=== PATIENT | female | born 1950 | race Caucasian/White ===

== ENCOUNTER 2016-09-20 10:13 | Outpatient (CLI) | payer OTHER, MEDICARE ==
[2016-09-20 11:00] LABS: Hemoglobin A1c 7.1 % (4.0-6.0)
[2016-09-20 11:08] LABS: ALT (SGPT) 23 U/L (0-55); AST (SGOT) 19 U/L (5-34); Alkaline Phosphatase 88 U/L (40-150); Anion Gap 15 mmol/L (10-20); BUN (Urea Nitrogen) 14 mg/dL (9.8-20.1); Bilirubin, Total 0.4 mg/dL (0.2-1.2); Calc. Creatinine Clearance 0 mL/min (70-130); Calcium 9.3 mg/dL (7.8-10.44); Carbon Dioxide 27 mmol/L (23-31); Chloride 106 mmol/L (98-107); Estimated GFR-MDRD 61; Globulin 2.6 g/dL (2.4-3.5); LDL Cholesterol, Calculated 103 mg/dL; Protein, Total 6.8 g/dL (5.8-8.1)
== END 2016-09-20 10:14 | disposition home or self-care (01) ==
LOC: NAV LAB 10:13
PROVIDERS: ATTEND Family Medicine
DX: E78.5 Hyperlipidemia, unspecified (principal); E11.9 Type 2 diabetes mellitus without complications
CPT/HCPCS: 80053; 80061; 83036

== ENCOUNTER 2017-02-12 09:01 | Outpatient (CLI) | payer OTHER, MEDICARE ==
[2017-02-12 09:55] LABS: ALT (SGPT) 16 U/L (8-55); AST (SGOT) 16 U/L (5-34); Albumin 4.3 g/dL (3.4-4.8); Alkaline Phosphatase 70 U/L (40-150); Anion Gap 15 mmol/L (10-20); BUN (Urea Nitrogen) 21 mg/dL (9.8-20.1); Bilirubin, Total 0.4 mg/dL (0.2-1.2); Calc. Creatinine Clearance 0 mL/min (70-130); Calcium 9.5 mg/dL (7.8-10.44); Carbon Dioxide 28 mmol/L (23-31); Cardiac Risk 3.8 (Less than 4.5); Chloride 105 mmol/L (98-107); Cholesterol 180 mg/dl (< 200 Desired); Estimated GFR-MDRD 52; Globulin 2.9 g/dL (2.4-3.5); Glucose 136 mg/dL (80-115); HDL Cholesterol 48 mg/dL (>60 Neg Risk); LDL Cholesterol, Calculated 91 mg/dL; Potassium 4.4 mmol/L (3.5-5.1); Protein, Total 7.2 g/dL (6.0-8.3); Sodium 144 mmol/L (136-145); Triglycerides 207 mg/dL (Less than 150)
[2017-02-12 18:51] LABS: Microalbumin Urine Less than 1.0 mg/dL (0.5-50.0); Microalbumin/Creat Ratio 7.6 mg/g (Less than 30)
== END 2017-02-12 09:02 | disposition home or self-care (01) ==
LOC: NAV LAB 09:01
PROVIDERS: ATTEND Family Medicine
DX: E78.5 Hyperlipidemia, unspecified (principal); E11.9 Type 2 diabetes mellitus without complications
CPT/HCPCS: 80053; 80061; 82043; 83036

== ENCOUNTER 2018-08-30 02:03 | Emergency (ER) | payer OTHER, MEDICARE ==
[2018-08-30 02:38] LABS: Band 15 % (5-11); Hemoglobin 12.5 g/dL (12.0-16.0); Lymphocytes 41 % (21-51); MDiff Complete? YES; Mean Corpuscular HGB CONC 32.3 g/dL (32.0-36.0); Mean Corpuscular Hemoglobin 30.1 pg (27.0-31.0); Mean Corpuscular Volume 93.1 fL (78.0-98.0); Mean Platelet Volume 8.1 fL (7.4-10.4); Metamyelocyte 1 % (0-0); Monocytes 5 % (0-10); Neutrophil 38 % (42-75); Platelet Count 244 thou/uL (130-400); Platelet Morphology Comment Appears Adequate; RBC Distribution Width 11.9 % (11.5-14.5); RBC Morphology Normal; Red Blood Cell (RBC) Count 4.17 mill/uL (4.20-5.40); White Blood Cell (WBC) Count 5.7 thou/uL (4.8-10.8)
[2018-08-30 02:43] LABS: ALT (SGPT) 13 U/L (8-55); AST (SGOT) 15 U/L (5-34); Albumin 4.1 g/dL (3.4-4.8); Alkaline Phosphatase 55 U/L (40-150); Anion Gap 13 mmol/L (10-20); BUN (Urea Nitrogen) 21 mg/dL (9.8-20.1); Bilirubin, Total 0.3 mg/dL (0.2-1.2); Calc. Creatinine Clearance 0 mL/min (70-130); Calcium 9.8 mg/dL (7.8-10.44); Carbon Dioxide 23 mmol/L (23-31); Chloride 110 mmol/L (98-107); Estimated GFR-MDRD 67; Globulin 2.6 g/dL (2.4-3.5); Glucose 121 mg/dL (80-115); Potassium 4.4 mmol/L (3.5-5.1); Protein, Total 6.7 g/dL (6.0-8.3); Sodium 142 mmol/L (136-145)
[2018-08-30] MEDS ORDERED: Nitroglycerin 0.4 MG TAB (25 Tab Bottle) ONE (03:04)
--- NOTE | 2018-08-30 08:50 | RAD ---
RADIOGRAPH CHEST 2 VIEWS: HISTORY: A 67-year-old female with chest pain. FINDINGS: There is no air space density, pulmonary edema, pleural effusion, pneumothorax, or cardiomegaly. IMPRESSION: No acute cardiopulmonary findings. jn [] POS: [facility]
== END 2018-08-30 03:53 | disposition short-term general hospital (02) ==
LOC: NAV ERS 02:03
DX: R07.9 Chest pain, unspecified (principal); E03.9 Hypothyroidism, unspecified; I10 Essential (primary) hypertension; J45.909 Unspecified asthma, uncomplicated; F32.9 Major depressive disorder, single episode, unspecified; Z79.899 Other long term (current) drug therapy; Z79.84 Long term (current) use of oral hypoglycemic drugs; Z87.891 Personal history of nicotine dependence
CPT/HCPCS: 71046; 80053; 84484; 85025; 85379; 93005